=== PATIENT | female | born 1985 | race American Indian/Alaskan Native ===

== ENCOUNTER 2020-09-12 18:33 | Inpatient (IN) | payer OTHER ==
[2020-09-12 19:47] LABS: Basophils % (Auto) 0.1 % (0.0-1.8); Eosinophils # (Auto) 0.2 K/mm3 (0.0-0.4); Eosinophils % (Auto) 1.6 % (0.0-4.3); Hematocrit 32.1 % (30.3-42.9); Hemoglobin 10.7 gm/dl (10.1-14.3); Lymphocytes % (Auto) 13.7 % (13.4-35.0); Mean Corpuscular HGB Conc 33 % (30-34); Mean Corpuscular Volume 77 fl (79-97); Platelet Count 422 K/mm3 (140-440); Red Blood Count 4.15 M/mm3 (3.65-5.03); Red Cell Distribution Width 15.2 % (13.2-15.2)
[2020-09-12 20:04] LABS: Alanine Aminotransferase 11 units/L (7-56); Albumin 3.4 g/dL (3.9-5); BUN/Creatinine Ratio 9; Blood Urea Nitrogen 7 mg/dL (7-17); Calcium 9.6 mg/dL (8.4-10.2); Hemolysis Index 5
[2020-09-12 20:32] LABS: Bacteria,Urine 1+ /HPF (Negative); Bilirubin,Urine NEG (Negative); Blood,Urine LG (Negative); Color,Urine Yellow (Yellow); Mucus,Urine FEW /HPF; Urobilinogen,Urine < 2.0 mg/dL (<2.0)
[2020-09-12] MEDS ORDERED: MORPHINE 4 MG/1 ML INJ IV ONE (23:59)
[2020-09-12] MEDS ORDERED: SODIUM CHLORIDE 0.9% 1000 ML 1,000 ML IV ONE (23:59)
[2020-09-12] MEDS ORDERED: ONDANSETRON 4 MG/2 ML INJ IV ONE (23:59)
[2020-09-13] MEDS ORDERED: FAMOTIDINE 20 MG/2 ML INJ IV ONE
[2020-09-13] MEDS ORDERED: cefTRIAXone/NS 1 GM/50 ML 1 GM/50 ML BAG IV ONE
--- NOTE | 2020-09-13 02:01 | Cat Scan Report ---
CT ABDOMEN AND PELVIS WITH IV CONTRAST INDICATION: Right lower quadrant abdominal pain TECHNIQUE: Following the administration of intravenous contrast, multiple axial CT images of the abdo men and pelvis were acquired. Sagittal and coronal reformats were obtained. All CT performed at this facility utilize dose reduction techniques including automated exposure control, iterative reconstru ction and weight based dosing when appropriate to reduce patient radiation dose to as low as reasonab ly achievable. COMPARISON: None FINDINGS: Limited imaging of the bilateral lung bases demonstrates no acute abnormality. ABDOMEN: The liver, gallbladder, spleen, pancreas, bilateral adrenal glands and bilateral kidneys show no evid ence of acute abnormality. The abdominal aorta is normal in caliber. There is moderate inflammatory stranding and enhancement of multiple loops of mid and distal small vi wel an associated small amount of free fluid. There are multiple enlarged lymph nodes within the righ t lower quadrant. There are also hyperenhancing inflammatory changes of the ascending colon. No defin ite pneumatosis or extraluminal free air can be identified. Please note that the appendix cannot defi nitely be identified. PELVIS: The urinary bladder and uterus appear within normal limits. The distal colon appears grossly normal. There is a small amount of free pelvic fluid. BONES AND SOFT TISSUES: Bony structures appear grossly normal. Evaluation of soft tissue structures d emonstrates no acute soft tissue abnormality. IMPRESSION: 1. Moderate inflammatory changes within the right lower quadrant as described with multiple loops of hyperenhancing distal small bowel and ascending colon. Findings may suggest an infectious or inflamma tory process such as inflammatory bowel disease. Please correlate with patient's clinical circumstanc es. 2. Please note that a normal appendix cannot be identified. Signer Name: Samira Horne MD Signed: 09/13/2020 1:56 AM Workstation Name: [id number]
[2020-09-13] MEDS ORDERED: metroNIDAZOLE/NS 500 MG/100 ML 500 MG/100 ML BAG IV ONE (02:23)
[2020-09-13] MEDS ORDERED: levoFLOXacin 500 MG TAB PO ONE (02:23)
--- NOTE | 2020-09-13 02:36 | Emergency Department Report ---
ED Abdominal Pain HPI - General Chief Complaint: Abdominal Pain Stated Complaint: STOMACH PAIN/RT SIDE PAIN Source: patient Mode of arrival: Ambulatory Limitations: No Limitations - History of Present Illness Initial Comments: Patient is a 35-year-old -[place] female with no past medical history presents to the ED with complaint of acute onset persistent right lower quadrant abdominal pain with nausea of for the last 1 week, worse in the last 4 days. Patient states that the last 24 hours, the pain has worsened significantly in the right lower quadrant. Patient states that she initially started having mild diffuse abdominal pain over 2 weeks ago and even travel to [place] with have friends but when she got back she initially thought that she was constipated and took a lot of laxatives which did not help relieve her pain. Patient states that about 4 days ago the pain has become more worse in severity. Patient denies dysuria, urinary frequency and urgency, vaginal bleeding, vaginal discharge, chest pain, shortness of breath, diarrhea, vomiting, traumatic injury or heavy lifting, fever and chills or low back pain. MD Complaint: abdominal pain (RLQ pain) -: Sudden, days(s) (5) Location: RLQ Radiation: RLQ, suprapubic Migration to: no migration Severity: severe Severity scale (0 -10): 7 Quality: cramping, aching, sharp Consistency: constant Improves With: nothing Worsens With: movement Associated Symptoms: denies other symptoms, nausea. denies: vomiting, diarrhea, fever, chills, constipation, dysuria, hematemesis, hematochezia, melena, hematur ia, anorexia, syncope - Related Data LMP (females 10-50): this week Allergies Allergy/AdvReac Type Severity Reaction Status Date / Time No Known Allergies Allergy Unverified 09/12/20 19:25 ED Review of Systems ROS: Stated complaint: STOMACH PAIN/RT SIDE PAIN Other details as noted in HPI Constitutional: denies: chills, fever Eyes: denies: eye pain, eye discharge, vision change ENT: denies: ear pain, throat pain Respiratory: denies: cough, shortness of breath, wheezing Cardiovascular: denies: chest pain, palpitations Endocrine: no symptoms reported Gastrointestinal: abdominal pain (RLQ), nausea. denies: diarrhea Genitourinary: denies: urgency, dysuria, discharge Musculoskeletal: denies: back pain, joint swelling, arthralgia Skin: denies: rash, lesions Neurological: denies: headache, weakness, paresthesias Psychiatric: denies: anxiety, depression Hematological/Lymphatic: denies: easy bleeding, easy bruising ED Past Medical Hx - Past Medical History Previous Medical History?: No - Surgical History Past Surgical History?: No ED Physical Exam - General Limitations: No Limitations General appearance: alert, in no apparent distress - Head Head exam: Present: atraumatic, normocephalic, normal inspection - Eye Eye exam: Present: normal appearance, PERRL, EOMI Pupils: Present: normal accommodation - ENT ENT exam: Present: normal exam, normal orophraynx, mucous membranes moist, TM's normal bilaterally, normal external ear exam - Neck Neck exam: Present: normal inspection, full ROM - Respiratory Respiratory exam: Present: normal lung sounds bilaterally. Absent: respiratory distress, wheezes, rales, rhonchi, chest wall tenderness, decreased breath sounds, prolonged expiratory - Cardiovascular Cardiovascular Exam: Present: regular rate, normal rhythm, normal heart sounds. Absent: systolic murmur, diastolic murmur, rubs, gallop - GI/Abdominal GI/Abdominal exam: Present: soft, tenderness (RLQ tenderness), normal bowel sounds. Absent: distended, guarding, hyperactive bowel sounds, hypoactive bowel sounds, organomegaly, mass, bruit, hernia - Bi-manual exam: Present: other (Pelvic exam deferred) - Extremities Exam Extremities exam: Present: normal inspection, full ROM, normal capillary refill - Back Exam Back exam: Present: normal inspection, full ROM. Absent: tenderness, CVA tenderness (R), CVA tenderness (L), muscle spasm, paraspinal tenderness, vertebral tenderness - Neurological Exam Neurological exam: Present: alert, oriented X3, CN II-XII intact, normal gait, reflexes normal - Psychiatric Psychiatric exam: Present: normal affect, normal mood - Skin Skin exam: Present: warm, dry, intact, normal color. Absent: rash ED Course Vital Signs 09/12/20 19:27 Temperature 98.2 F Pulse Rate 91 H Respiratory 18 Rate Blood Pressure 131/79 O2 Sat by Pulse 99 Oximetry ED Medical Decision Making - Lab Data Result diagrams: 09/12/20 19:28 09/12/20 19:28 - Radiology Data Radiology results: report reviewed, image reviewed Findings [facility] [address] [place] [address] Cat Scan Report Signed Patient: CONNIE MARTINEZ MR#: [id number] 3 : 1985 Acct:[id number] Age/Sex: 35 / F ADM Date: 09/12/20 Loc: ED Attending Dr: Ordering Physician: ELVA DUGAN Date of Service: 09/12/20 Procedure(s): CT abdomen pelvis w con Accession Number(s): [id number] cc: ELVA DUGAN CT ABDOMEN AND PELVIS WITH IV CONTRAST INDICATION: Right lower quadrant abdominal pain TECHNIQUE: Following the administration of intravenous contrast, multiple axial CT images of the abdomen and pelvis were acquired. Sagittal and coronal reformats were obtained. All CT performed at this facility utilize dose reduction techniques including automated exposure control, iterative reconstruction and weight based dosing when appropriate to reduce patient r adiation dose to as low as reasonably achievable. COMPARISON: None FINDINGS: Limited imaging of the bilateral lung bases demonstrates no acute abnormality. ABDOMEN: The liver, gallbladder, spleen, pancreas, bilateral adrenal glands and bilateral kidneys show no evidence of acute abnormality. The abdominal aorta is normal in caliber. There is moderate inflammatory stranding and enhancement of multiple loops of mid and distal small bowel an associated small amount of free fluid. There are multiple enlarged lymph nodes within the right lower quadrant. There are also hyperenhancing inflammatory changes of the ascending colon. No definite pneumatosis or extraluminal free air can be identified. Please note that the appendix cannot definitely be identified. PELVIS: The urinary bladder and uterus appear within normal limits. The distal colon appears grossly normal. There is a small amount of free pelvic fluid. BONES AND SOFT TISSUES: Bony structures appear grossly normal. Evaluation of soft tissue structures demonstrates no acute soft tissue abnormality. IMPRESSION: 1. Moderate inflammatory changes within the right lower quadrant as described with multiple loops of hyperenhancing distal small bowel and ascending colon. Findings may suggest an infectious or inflammatory process such as inflammatory bowel disease. Please correlate with patient's clinical circumstances. 2. Please note that a normal appendix cannot be identified. Signer Name: Samira Horne MD Signed: 09/13/2020 1:56 AM Workstation Name: [id number] Transcribed By: EB Dictated By: Samira Horne MD Electronically Authenticated By: Samira Horne MD Signed Date/Time: 09/13/20 0156 DD/ 0147 TD/TT: - Medical Decision Making This is a 35-year-old -[place] female with no past medical history presents to the ED with complaint of acute onset persistent right lower quadrant abdominal pain with nausea of for the last 1 week, worse in the last 4 days. Patient states that the last 24 hours, the pain has worsened significantly in the right lower quadrant. Patient states that she initially started having mild diffuse abdominal pain over 2 weeks ago and even travel to [place] with have friends but when she got back she initially thought that she was constipated and took a lot of laxatives which did not help relieve her pain. Patient states that about 4 days ago the pain has become more worse in severity. In the ED, patient is alert and oriented x3 and is not in distress. Patient was treated for pain in the ED and also received normal saline 1 L IV bolus x1, also treated with antiemetics. Lab test results were reviewed and showed acute leukocytosis of 14,300, mild hyponatremia of 134 mmol/L and significant urinary tract infection in urinalysis. Abdomen pelvis CT scan with contrast showed moderate inflammatory changes within the right lower quadrant as described with multiple loops of hyperenhancing distal small bowel and ascending colon. Findings may suggest an infectious or inflammatory process such as inflammatory bowel disease. Please correlate with patient's clinical circumstances. Please note that a normal appendix cannot be identified. These findings were discussed with the ED attending physician Dr. Phan who advised that the general surgeon on-call be consulted for further advice the patient's disposition. I therefore discussed the patient's case with the general surgeon on-call Dr. Solares who advised that the patient be admitted by hospitalist for observation and that the patient be kept n.p.o. and that the patient be treated with IV antibiotics, specifically Zosyn. Dr. Solares stated that she would consult on the patient upon the patient's admission. This plan was discussed with the patient who agreed to stay in the hospital further for evaluation. I therefore paged and discussed the patient's case with the hospitalist physician on-call Dr. Sánchez who admitted the patient to the hospital. - Differential Diagnosis Appendicitis; UTI; Ovarian cyst; Crohns disease; Colitis Critical care attestation.: If time is entered above; I have spent that time in minutes in the direct care of this critically ill patient, excluding procedure time. ED Disposition Clinical Impression: Acute abdominal pain in right lower quadrant, Acute urinary tract infection, Acute colitis Acute appendicitis Qualifiers: Acute appendicitis type: unspecified acute appendicitis type Qualified Code(s): K35.80 - Unspecified acute appendicitis Disposition: OP ADMIT IP TO THIS HOSP Is pt being admited?: No Does the pt Need Aspirin: No Condition: Stable Instructions: Abdominal Pain (ED), Abdominal Pain, Adult, [id number], Urinary Tract Infection, Adult, [id number], Appendicitis, Adult, [id number] Time of Disposition: 04:09 Print Language: LITHUANIAN
[2020-09-13] MEDS ORDERED: PIPERACIL/TAZOBACTA 4.5/NS 100 4.5 GM/100 ML VIAL IV ONE (02:38)
[2020-09-13] MEDS ORDERED: ACETAMINOPHEN 325 MG TAB PO PRN (04:09)
[2020-09-13] MEDS ORDERED: ONDANSETRON 4 MG/2 ML INJ IV PRN ×3 (04:09→14:23)
--- NOTE | 2020-09-13 04:15 | History and Physical Report ---
History of Present Illness Date of examination: 09/13/20 Date of admission: 09/13/2020 Chief complaint: Abdominal pain History of present illness: 35-year-old -[place] female with no significant past medical history presenting to the emergency room today complaining of abdominal pain. Abdominal pain has been ongoing for about 1 week and has gotten worse over the past 3 to 4 days. Abdominal pain was initially generalized thereafter became more severe towards the right lower abdomen. She has had associated nausea but no vomiting, she has had some episodes of diarrhea over the past few days. Patient indicates that she was in [place] few weeks ago and was initially constipated and thereafter started taking some laxative which helped with the constipation. She denies any hematuria or dysuria, she denies any bright red blood per rectum. Patient is currently having her menstruation but indicates it is lasting longer than usual. She has had some blood clots occasionally. Work-up in the emergency room today reveals a leukocytosis of about 14.8. Urinalysis reveals UTI. CT of the abdomen and pelvis reveals: -Moderate inflammatory changes within the right lower quadrant with multiple loops of hyperenhancing distal small bowel and ascending colon. Findings may suggest an infectious or inflammatory process such as inflammatory bowel disease. -A normal appendix cannot be identified General surgeon Dr. Solares has been consulted by the ER physician of the above findings. Recommendation is to place patient n.p.o., commence patient on empiric IV antibiotics and patient will be promptly evaluated. Past History Past Medical History: No medical history Past Surgical History: No surgical history Social history: alcohol abuse (Occasional alcohol intake) Family history: other (Heart disease in family) Medications and Allergies Allergies Allergy/AdvReac Type Severity Reaction Status Date / Time No Known Allergies Allergy Unverified 09/12/20 19:25 Review of Systems Constitutional: no fever, no chills Ears, nose, mouth and throat: no nasal congestion, no sore throat Cardiovascular: no chest pain, no palpitations Respiratory: no cough, no shortness of breath Gastrointestinal: abdominal pain, nausea, diarrhea, no vomiting, no hematemesis, no coffee ground emesis, no BRBPR, no melena Genitourinary Female: no flank pain, no dysuria, no hematuria Musculoskeletal: no neck pain, no low back pain Integumentary: no rash, no pruritis Neurological: no headaches, no confusion Psychiatric: no anxiety, no depression Exam - Constitutional Vitals: Temp Pulse Resp BP Pulse Ox 98.1 F 84 16 126/81 98 09/13/20 04:08 09/13/20 04:08 09/13/20 04:08 09/13/20 04:08 09/13/20 04:08 General appearance: Present: no acute distress, well-nourished, obese - EENT Eyes: Present: PERRL, EOM intact. Absent: scleral icterus ENT: hearing intact, clear oral mucosa, dentition normal - Neck Neck: Present: supple, normal ROM - Respiratory Respiratory effort: normal Respiratory: bilateral: CTA - Cardiovascular Rhythm: regular Heart Sounds: Present: S1 & S2. Absent: gallop, systolic murmur, diastolic murmur, rub - Extremities Extremities: no ischemia, pulses intact, pulses symmetrical, No edema, Full ROM Peripheral Pulses: within normal limits - Abdominal General gastrointestinal: Present: soft, tender (right lower quadrant, no rebound tenderness.), non-distended, normal bowel sounds. Absent: mass - Integumentary Integumentary: Present: clear, warm, dry. Absent: rash - Musculoskeletal Musculoskeletal: strength equal bilaterally - Psychiatric Psychiatric: appropriate mood/affect, intact judgment & insight, memory intact, cooperative - Neurologic Neurologic: CNII-XII intact, no focal deficits, moves all extremities Results - Labs CBC & Chem 7: 09/12/20 19:28 09/12/20 19:28 Labs: Abnormal lab results 09/12/20 09/12/20 09/12/20 Range/Units 19:28 19:28 Unknown WBC 14.3 H (4.5-11.0) K/mm3 MCV 77 L (79-97) fl MCH 26 L (28-32) pg [place] # (Auto) 1.0 H (0.0-0.8) K/mm3 Seg Neutrophils % 77.6 H (40.0-70.0) % Seg Neutrophils # 11.1 H (1.8-7.7) K/mm3 Sodium 134 L (137-145) mmol/L Chloride 97.9 L (98-107) mmol/L Total Protein 8.6 H (6.3-8.2) g/dL Albumin 3.4 L (3.9-5) g/dL Urine WBC (Auto) 78.0 H (0.0-6.0) /HPF Assessment and Plan - Patient Problems (1) Acute abdominal pain in right lower quadrant Current Visit: Yes Status: Acute Plan to address problem: Possibly secondary to colitis and or appendicitis. Patient made n.p.o. and started on empiric IV antibiotics and IV fluid. General surgeon Dr. Solares has been consulted patient be promptly evaluated. (2) Acute urinary tract infection Current Visit: Yes Status: Acute Plan to address problem: Patient placed on empiric IV antibiotics. We await urine culture results. (3) DVT prophylaxis Current Visit: Yes Status: Acute Plan to address problem: Patient placed on sequential compression device. (4) Full code status Current Visit: Yes Status: Acute
[2020-09-13] MEDS ORDERED: MORPHINE 2 MG/1 ML INJ IV PRN (04:20)
[2020-09-13] MEDS ORDERED: HYDROmorphone 1 MG/1 ML INJ IV ONE (04:24)
[2020-09-13] MEDS ORDERED: ONDANSETRON 4 MG/2 ML INJ IV ONE (04:25)
--- NOTE | 2020-09-13 09:24 | Consultation ---
History of Present Illness Consult date: 09/13/20 Reason for consult: abdominal pain - History of present illness History of present illness: 35 year old female who presented to the ED with a 5 day hx of abdominal pain that started generalized and localized to the RLQ over the past 2-3 days. She says at its worse the pain is 10/10, currently a 6/10 after pain medication given. She says she has felt nauseous off and on but denies vomiting. She had a CT scan that showed inflamed small bowel loops and ascending colon, however the appendix could not be visualized. There were no signs of free air, fluid, or abscess. She denies ever having this pain before. Past History Past Medical History: No medical history Past Surgical History: No surgical history Social history: alcohol abuse (Occasional alcohol intake) Family history: other (Heart disease in family) Medications and Allergies Allergies Allergy/AdvReac Type Severity Reaction Status Date / Time No Known Allergies Allergy Unverified 09/12/20 19:25 Active Meds: Active Medications Acetaminophen (Acetaminophen 325 Mg Tab) 650 mg PO Q4H PRN PRN Reason: Pain MILD(1-3)/Fever >100.5/CHASE Piperacillin Sod/Tazobactam Sod (Zosyn/Ns 4.5gm/100ml) 4.5 gm in 100 mls @ 200 mls/hr IV Q8HR ONIEL; Protocol Morphine Sulfate (Morphine 2 Mg/1 Ml Inj) 2 mg IV Q4H PRN PRN Reason: Pain, Moderate (4-6) Last Admin: 09/13/20 09:08 Dose: 2 mg Documented by: Ondansetron HCl (Ondansetron 4 Mg/2 Ml Inj) 4 mg IV Q8H PRN PRN Reason: Nausea And Vomiting Sodium Chloride (Sodium Chloride 0.9% 10 Ml Flush Syringe) 10 ml IV BID ONIEL Last Admin: 09/13/20 09:13 Dose: 10 ml Documented by: Sodium Chloride (Sodium Chloride 0.9% 10 Ml Flush Syringe) 10 ml IV PRN PRN PRN Reason: LINE FLUSH Review of Systems - Constitutional fever, chills, poor appetite - Cardiovascular no chest pain - Respiratory no cough, no shortness of breath - Gastrointestinal abdominal pain, nausea - Genitourinary Genitourinary: no dysuria Exam Vital Signs Temp Pulse Resp BP Pulse Ox 98.2 F 91 H 18 131/79 99 09/12/20 19:27 09/12/20 19:27 09/12/20 19:27 09/12/20 19:27 09/12/20 19:27 - General physical appearance Positive: well developed, no distress, moderate pain - Respiratory Positive: normal expansion, normal respiratory effort - Extremities Extremities: no ischemia - Abdomen Abdomen: Present: soft, other (tender to palpation RLQ). Absent: distended, guarding, rigid Hernia: none Results - Labs 09/12/20 19:28 09/12/20 19:28 Abnormal lab results 09/12/20 09/12/20 09/12/20 Range/Units 19:28 19:28 Unknown WBC 14.3 H (4.5-11.0) K/mm3 MCV 77 L (79-97) fl MCH 26 L (28-32) pg [place] # (Auto) 1.0 H (0.0-0.8) K/mm3 Seg Neutrophils % 77.6 H (40.0-70.0) % Seg Neutrophils # 11.1 H (1.8-7.7) K/mm3 Sodium 134 L (137-145) mmol/L Chloride 97.9 L (98-107) mmol/L Lactic Acid (0.7-2.0) mmol/L Total Protein 8.6 H (6.3-8.2) g/dL Albumin 3.4 L (3.9-5) g/dL Urine WBC (Auto) 78.0 H (0.0-6.0) /HPF 09/13/20 Range/Units 03:57 WBC (4.5-11.0) K/mm3 MCV (79-97) fl MCH (28-32) pg [place] # (Auto) (0.0-0.8) K/mm3 Seg Neutrophils % (40.0-70.0) % Seg Neutrophils # (1.8-7.7) K/mm3 Sodium (137-145) mmol/L Chloride (98-107) mmol/L Lactic Acid 0.60 L (0.7-2.0) mmol/L Total Protein (6.3-8.2) g/dL Albumin (3.9-5) g/dL Urine WBC (Auto) (0.0-6.0) /HPF Diabetes panel 09/12/20 Range/Units 19:28 Sodium 134 L (137-145) mmol/L Potassium 4.0 (3.6-5.0) mmol/L Chloride 97.9 L (98-107) mmol/L Carbon Dioxide 25 (22-30) mmol/L BUN 7 (7-17) mg/dL Creatinine 0.8 (0.6-1.2) mg/dL Glucose 93 (65-100) mg/dL Calcium 9.6 (8.4-10.2) mg/dL AST 13 (5-40) units/L ALT 11 (7-56) units/L Alkaline Phosphatase 64 (35-129) units/L Total Protein 8.6 H (6.3-8.2) g/dL Albumin 3.4 L (3.9-5) g/dL Calcium panel 09/12/20 Range/Units 19:28 Calcium 9.6 (8.4-10.2) mg/dL Albumin 3.4 L (3.9-5) g/dL Pituitary panel 09/12/20 Range/Units 19:28 Sodium 134 L (137-145) mmol/L Potassium 4.0 (3.6-5.0) mmol/L Chloride 97.9 L (98-107) mmol/L Carbon Dioxide 25 (22-30) mmol/L BUN 7 (7-17) mg/dL Creatinine 0.8 (0.6-1.2) mg/dL Glucose 93 (65-100) mg/dL Calcium 9.6 (8.4-10.2) mg/dL Adrenal panel 09/12/20 Range/Units 19:28 Sodium 134 L (137-145) mmol/L Potassium 4.0 (3.6-5.0) mmol/L Chloride 97.9 L (98-107) mmol/L Carbon Dioxide 25 (22-30) mmol/L BUN 7 (7-17) mg/dL Creatinine 0.8 (0.6-1.2) mg/dL Glucose 93 (65-100) mg/dL Calcium 9.6 (8.4-10.2) mg/dL Total Bilirubin 0.40 (0.1-1.2) mg/dL AST 13 (5-40) units/L ALT 11 (7-56) units/L Alkaline Phosphatase 64 (35-129) units/L Total Protein 8.6 H (6.3-8.2) g/dL Albumin 3.4 L (3.9-5) g/dL - Imaging CT scan - abdomen: report reviewed, image reviewed CT scan - pelvis: report reviewed, image reviewed Assessment and Plan 35 year old female with acute RLQ pain with leukocytosis and CT scan findings consistent with possible appendicitis although appendix could not be visualized. Talked to patient at length about the possibility of this being an inflammatory process like enteritis, although appendicitis could not be ruled out. She agreed to dx laparoscopy with appendectomy. Will take for surgery later today. Continue NPO, and zosyn consent signed
[2020-09-13] MEDS: PIPERACIL/TAZOBACTA 4.5/NS 100 4.5 GM/100 ML VIAL IV SCH ×3 (09:27→23:11)
--- NOTE | 2020-09-13 09:56 | Event Note ---
Date: 09/13/20 Patient seen and examined, clinically stable at this time. Discussed findings with the patient possible surgery today as detailed by the surgeon. Patient verbalized understanding
[2020-09-13] MEDS ORDERED: propofoL 200 MG/20 ML VIAL IV ONE (14:20)
[2020-09-13] MEDS ORDERED: LIDOCAINE MPF (2%) 20 MG/1 ML VIAL 5 ML ONE (14:20)
[2020-09-13] MEDS ORDERED: SUCCINYLCHOLINE CHLORIDE 200 MG/10 ML INJ MDV ONE (14:20)
[2020-09-13] MEDS ORDERED: HYDROmorphone 1 MG/1 ML INJ ONE (14:20)
[2020-09-13] MEDS ORDERED: ROCURONIUM 50 MG/5 ML INJ IV ONE (14:20)
--- NOTE | 2020-09-13 14:22 | Anesthesia Day of Surgery ---
Anesthesia Day of Surgery - Day of Surgery Patient Examined: Yes Patient H&P Reviewed: Yes Patient is NPO: Yes
[2020-09-13] MEDS ORDERED: HYDROmorphone 1 MG/1 ML INJ IV PRN (14:23)
--- NOTE | 2020-09-13 14:23 | Anesthesia Consultation ---
Anesthesia Consult and Med Hx Date of service: 09/13/20 - Airway Anesthetic Teeth Evaluation: Good ROM Head & Neck: Adequate Mental/Hyoid Distance: Adequate Mallampati Class: Class I Intubation Access Assessment: Good - Pre-Operative Health Status ASA Pre-Surgery Classification: ASA2 Proposed Anesthetic Plan: General - Pulmonary Hx Asthma: No COPD: No Hx Pneumonia: No - Central Nervous System Hx Psychiatric Problems: No - Endocrine Hx End Stage Renal Disease: No - Other Systems Hx Obesity: Yes
[2020-09-13] MEDS ORDERED: LACTATED RINGERS 1,000 ML IV SCH (14:30)
[2020-09-13] MEDS ORDERED: LIDOCAINE (1%) 10 MG/1 ML VIAL 20 ML MDV ONE (14:35)
[2020-09-13] MEDS ORDERED: BUPIVACAINE/PF (0.5%) 5 MG/1 ML 30 ML VIAL INFILTRATI ONE ×2 (14:35→16:07)
[2020-09-13] MEDS ORDERED: LACTATED RINGERS 1,000 ML ONE (14:38)
[2020-09-13] MEDS ORDERED: MIDAZOLAM 2 MG/2 ML INJ IV NR (15:00)
[2020-09-13] MEDS ORDERED: dexAMETHasone 20 MG/5 ML VIAL ONE (15:30)
[2020-09-13] MEDS ORDERED: ONDANSETRON 4 MG/2 ML INJ ONE (15:30)
[2020-09-13] MEDS ORDERED: ceFAZolin 1 GM VIAL ONE ×2 (15:31)
[2020-09-13] MEDS ORDERED: LIDOCAINE (1%) 10 MG/1 ML VIAL 20 ML MDV INFILTRATI ONE (16:07)
[2020-09-13] MEDS ORDERED: SODIUM CHLORIDE 0.9% IRRIG SOLN 2000 ML IR ONE (16:08)
[2020-09-13] MEDS ORDERED: SODIUM CHLORIDE 0.9% IRR 1,000 ML BOTTLE IR ONE (16:08)
[2020-09-13] MEDS ORDERED: GLYCOPYRROLATE 0.4 MG/2 ML INJ ONE (16:17)
[2020-09-13] MEDS ORDERED: NEOSTIGMINE 10MG/10 ML INJ MDV ONE (16:17)
--- NOTE | 2020-09-13 16:37 | Event Note ---
Date: 09/13/20 pt had uneventful laparoscopic appendectomy. If does well overnight may possibly be discharged tomorrow.
--- NOTE | 2020-09-13 16:50 | Operative Report ---
Operative Report Operative Report: Dates of Service: 09/13/2020 Primary Surgeon: Arlyn Solares MD Assisted by: Salma Delatorre DO Procedure: Laparoscopic Appendectomy Anesthesia: GETA Pre-Operative Diagnosis: acute appendicitis Post-Operative Diagnosis: Same Indications for Procedure: 35 year old female presented to ED with 5 day hx of worsening abdominal RLQ pain. CT scan showed inflamed small bowel and ascending colon loops although appendix could not be visualized. Clinical picture was c/w likely appendicitis. She signed informed consent for laparoscopic appendectomy. Description of Procedure(s): The patient was brought to the operating room and underwent general anesthesia after lower extremity SCD were placed. The abdomen was prepped and draped in the standard fashion. IV antibiotics were given and a time out was performed. Using a veress needle via a stab incision in the umbilicus, the abdomen was insuflated to a pressure of 15mmHg. Using optivew technique, a 5mm trocar was placed just superior and to the left of the umbilicus. There was no gross injury noted to any intra-abdominal structures. A fter which working trocars were placed under direct visualization. A 12 mm trocar was placed in left mid abdomen, and a 5 mm trocar was inserted in the suprapubic area. The patient was placed in slight Trendelenburg position and tilted towards her left side. There was noted to be significant small bowel adhesions to the anterior abdominal wall. These were soft and flimsy consistent with acute inflammation. These were easily taken down with gentle traction. The cecum was identified and mobilized, as well as the terminal ileum. There was noted to be some fibrinous exudate and serosanguineous fluid. There was no gross purulent fluid. The appendix was noted to be retrocecal. It was skeletonized off of the side of the terminal ileum with the LigaSure device. The mesoappendix was transected with the LigaSure. The appendix was then taken at its base with a white load on a laparoscopic stapler. The staple line was inspected and found to be hemostatically sound and secure. There was minimal irrigation of the right lower quadrant. The appendix was placed in Endo Catch bag. It was then retrieved via the 12 mm trocar. The fascia was then closed using a #1 PDS and a suture passer device. Trocars were removed under direct visualization. The insufflation was then terminated. The skin incisions were closed using 4-0 Monocryl sutures. All the wounds dressed with dermabond. The patient tolerated the procedure well, was extubated and taken to the recovery room in satisfactory condition. Specimen: appendix Complications: none immediate EBl: minimal Findings: significant inflammation of the distal ileum and cecum with an enlarged firm appendix. There was no gross perforation seen, but suspect micro perf as inflammatory reaction in RLQ was intense.
[2020-09-13] MEDS: HYDROmorphone 1 MG/1 ML INJ IV PRN ×2 (17:09→17:20)
--- NOTE | 2020-09-13 18:29 | Post Anesthesia Evaluation ---
- Post Anesthesia Evaluation Patient Participated: Yes Airway Patent: Yes Stable Respiratory Function: Yes Nausea/Vomiting: No Temp > 96.8F: Yes Pain Manageable: Yes Adequeate Hydration: Yes Anesthesia Complications: No Block Receding Appropriately: Not Applicable Patient on Ventilator: No
[2020-09-13] MEDS ORDERED: oxyCODONE /ACETAMINOPHEN 5-325MG TAB PO PRN (19:54)
[2020-09-13] MEDS: KETOROLAC 30 MG/1 ML INJ IV SCH (21:54)
[2020-09-14] MEDS: KETOROLAC 30 MG/1 ML INJ IV SCH ×4 (01:19→17:55)
[2020-09-14] MEDS: PIPERACIL/TAZOBACTA 4.5/NS 100 4.5 GM/100 ML VIAL IV SCH ×3 (05:03→21:10)
[2020-09-14] MEDS: LACTATED RINGERS 1,000 ML IV SCH ×2 (05:04→17:57)
[2020-09-14 05:52] LABS: Basophils % (Auto) 0.1 % (0.0-1.8); Hematocrit 30.2 % (30.3-42.9); Hemoglobin 9.6 gm/dl (10.1-14.3); Lymphocytes # (Auto) 1.2 K/mm3 (1.2-5.4); Lymphocytes % (Auto) 7.5 % (13.4-35.0); Mean Corpuscular HGB Conc 32 % (30-34); Mean Corpuscular Volume 79 fl (79-97); Monocytes % (Auto) 6.2 % (0.0-7.3); Platelet Count 441 K/mm3 (140-440); Red Blood Count 3.85 M/mm3 (3.65-5.03); Red Cell Distribution Width 15.2 % (13.2-15.2)
--- NOTE | 2020-09-14 09:41 | Progress Note ---
Assessment and Plan POD#1 s/p lap appy for acute appendicitis. Suspect appendix had a microperforation since there was an intense inflammatory reaction in the RLQ encompassing small bowel and right colon. Afebrile and stable with increasing leukocytosis (likely due to reaction from taking down inflammatory adhesions that were walling off perforated appendix) Continue IV abx for one more day and plan for discharge tomorrow assuming she continues to clinically do well. Subjective Date of service: 09/14/20 Patient Reports: Positive: still having pain, pain is less, tolerating liquids well (no acute events overnight. Pt says she has some pain in her RLQ when she eats. ) Objective Vital Signs - 12hr 09/14/20 09/14/20 09/14/20 03:11 04:00 07:50 Temperature 98.5 F 97.9 F Pulse Rate 67 103 H 56 L Respiratory 18 18 Rate Blood Pressure 109/71 102/66 O2 Sat by Pulse 100 98 Oximetry 09/14/20 08:24 Temperature 97.4 F L Pulse Rate 70 Respiratory 18 Rate Blood Pressure 103/64 O2 Sat by Pulse 97 Oximetry - General physical appearance well developed, well nourished, no distress, moderate pain - Respiratory normal expansion, normal respiratory effort - Abdomen soft, not rebound, not guarding, not rigid, other (incisions c/d/i, apporpriately tender to palpation) - Labs 09/14/20 05:13 09/12/20 19:28
--- NOTE | 2020-09-14 16:09 | Progress Note ---
Subjective Date of service: 09/14/20 Interval history: 35-year-old -British female with no significant past medical history presenting to the emergency room today complaining of abdominal pain. Abdominal pain has been ongoing for about 1 week and has gotten worse over the past 3 to 4 days. Abdominal pain was initially generalized thereafter became more severe towards the right lower abdomen. She has had associated nausea but no vomiting, she has had some episodes of diarrhea over the past few days. Patient indicates that she was in [place] few weeks ago and was initially constipated and thereafter started taking some laxative which helped with the constipation. She denies any hematuria or dysuria, she denies any bright red blood per rectum. Patient is currently having her menstruation but indicates it is lasting longer than usual. She has had some blood clots occasionally. Work-up in the emergency room today reveals a leukocytosis of about 14.8. Urinalysis reveals UTI. CT of the abdomen and pelvis reveals: -Moderate inflammatory changes within the right lower quadrant with multiple loops of hyperenhancing distal small bowel and ascending colon. Findings may suggest an infectious or inflammatory process such as inflammatory bowel disease. -A normal appendix cannot be identified General surgeon Dr. Solares has been consulted by the ER physician of the above findings. Recommendation is to place patient n.p.o., commence patient on empiric IV antibiotics and patient will be promptly evaluated. 09/14 patient is alert and oriented and offers no specific complaints except intermittent abdominal pain. She denies any nausea or vomiting. Denies fever or chills. General surgery note reviewed. Lab results reviewed Assessment and plan Acute appendicitis with suspected microperforation Status post lap appendectomy General surgery note reviewed Patient states that she has not yet passed flatus Neutrophilic leukocytosis Rule out reactive versus secondary to UTI versus intra-abdominal infection Continue Zosyn Normocytic anemia No overt bleed Monitor H&H Urinary tract infection UA reviewed Urine cultures were not obtained Continue IV antibiotic Objective - Constitutional Vitals: Vital Signs - 12hr 09/14/20 09/14/20 09/14/20 07:50 08:24 11:43 Temperature 97.9 F 97.4 F L 97.9 F Pulse Rate 56 L 70 73 Respiratory 18 18 18 Rate Blood Pressure 102/66 103/64 109/70 O2 Sat by Pulse 98 97 97 Oximetry General appearance: Present: no acute distress, well-nourished - EENT Eyes: PERRL, EOM intact ENT: hearing intact, clear oral mucosa - Neck Neck: supple, normal ROM - Respiratory Respiratory effort: normal Respiratory: bilateral: CTA - Cardiovascular Rhythm: regular Heart Sounds: Present: S1 & S2 Extremities: No edema - Gastrointestinal General gastrointestinal: Present: soft, tender (Appropriately tender) Rectal Exam: deferred - Genitourinary Female genitourinary: deferred - Integumentary Integumentary: clear - Musculoskeletal Musculoskeletal: strength equal bilaterally - Neurologic Neurologic: no focal deficits - Psychiatric Psychiatric: appropriate mood/affect - Labs CBC & Chem 7: 09/14/20 05:13 09/12/20 19:28 Labs: Abnormal lab results 09/14/20 Range/Units 05:13 WBC 15.6 H (4.5-11.0) K/mm3 Hgb 9.6 L (10.1-14.3) gm/dl Hct 30.2 L (30.3-42.9) % MCH 25 L (28-32) pg Plt Count 441 H (140-440) K/mm3 Lymph % (Auto) 7.5 L (13.4-35.0) % [place] # (Auto) 1.0 H (0.0-0.8) K/mm3 Seg Neutrophils % 86.2 H (40.0-70.0) % Seg Neutrophils # 13.5 H (1.8-7.7) K/mm3
[2020-09-15] MEDS: KETOROLAC 30 MG/1 ML INJ IV SCH ×3 (00:48→11:30)
[2020-09-15] MEDS: PIPERACIL/TAZOBACTA 4.5/NS 100 4.5 GM/100 ML VIAL IV SCH (06:17)
[2020-09-15 06:46] LABS: Basophils % (Auto) 0.4 % (0.0-1.8); Eosinophils # (Auto) 0.2 K/mm3 (0.0-0.4); Eosinophils % (Auto) 1.5 % (0.0-4.3); Hematocrit 28.7 % (30.3-42.9); Hemoglobin 9.3 gm/dl (10.1-14.3); Lymphocytes # (Auto) 2.5 K/mm3 (1.2-5.4); Lymphocytes % (Auto) 23.9 % (13.4-35.0); Mean Corpuscular HGB Conc 33 % (30-34); Mean Corpuscular Volume 78 fl (79-97); Monocytes # (Auto) 0.9 K/mm3 (0.0-0.8); Platelet Count 410 K/mm3 (140-440); Red Blood Count 3.69 M/mm3 (3.65-5.03); Red Cell Distribution Width 14.9 % (13.2-15.2)
--- NOTE | 2020-09-15 10:46 | Discharge Summary ---
Providers - Providers Date of Admission: 09/13/20 04:10 Date of discharge: 09/15/20 Attending physician: HOLLY LYN 09/13/20 02:49 Consult to Physician [CONS] Stat Comment: To consult upon admission Consulting Provider: MARILEE SOLARES Physician Instructions: Keep NPO; Admit to Hospitalist; Start Abx IV Reason For Exam: Colitis; Appendicitis [facility] Condition: Stable Hospital course: 35-year-old -Greek female with no significant past medical history presenting to the emergency room today complaining of abdominal pain. Abdominal pain has been ongoing for about 1 week and has gotten worse over the past 3 to 4 days. Abdominal pain was initially generalized thereafter became more severe towards the right lower abdomen. She has had associated nausea but no vomiting, she has had some episodes of diarrhea over the past few days. Patient indicates that she was in [place] few weeks ago and was initially constipated and thereafter started taking some laxative which helped with the constipation. She denies any hematuria or dysuria, she denies any bright red blood per rectum. Patient is currently having her menstruation but indicates it is lasting longer than usual. She has had some blood clots occasionally. Work-up in the emergency room today reveals a leukocytosis of about 14.8. Urinalysis reveals UTI. CT of the abdomen and pelvis reveals: -Moderate inflammatory changes within the right lower quadrant with multiple loops of hyperenhancing distal small bowel and ascending colon. Findings may suggest an infectious or inflammatory process such as inflammatory bowel disease. -A normal appendix cannot be identified General surgeon Dr. Solares has been consulted by the ER physician of the above findings. Recommendation is to place patient n.p.o., commence patient on empiric IV antibiotics and patient will be promptly evaluated. 09/14 patient is alert and oriented and offers no specific complaints except intermittent abdominal pain. She denies any nausea or vomiting. Denies fever or chills. General surgery note reviewed. Lab results reviewed 09/15 patient offers no complaints, tolerating diet well, denies any pain, past flatus and had a small bowel movement, abdomen is benign, medically stable for discharge. Instructed the RN to keep the patient until surgery clears the patient Assessment and plan Acute appendicitis with suspected microperforation Status post lap appendectomy General surgery note reviewed Augmentin x7 days Neutrophilic leukocytosis Resolved Rule out reactive versus secondary to UTI versus intra-abdominal infection Normocytic anemia No overt bleed H&H stable Urinary tract infection UA reviewed Urine cultures were not obtained Disposition: DC-30 STILL A PATIENT Time spent for discharge: 36 min Core Measure Documentation - Palliative Care Palliative Care/ Comfort Measures: Not Applicable - Core Measures Any of the following diagnoses?: none Exam - Constitutional Vitals: Temp Pulse Resp BP Pulse Ox 97.9 F 76 18 124/78 95 09/15/20 07:41 09/15/20 07:41 09/15/20 07:41 09/15/20 07:41 09/15/20 07:41 General appearance: Present: no acute distress, well-nourished - EENT Eyes: Present: PERRL, EOM intact ENT: hearing intact, clear oral mucosa - Neck Neck: Present: supple, normal ROM - Respiratory Respiratory effort: normal Respiratory: bilateral: CTA - Cardiovascular Rhythm: regular Heart Sounds: Present: S1 & S2 - Extremities Extremities: No edema - Abdominal General gastrointestinal: Present: soft, non-tender - Rectal Rectal Exam: deferred - Integumentary Integumentary: Present: clear - Musculoskeletal Musculoskeletal: strength equal bilaterally - Psychiatric Psychiatric: appropriate mood/affect - Neurologic Neurologic: no focal deficits Plan Activity: advance as tolerated Weight Bearing Status: Full Weight Bearing Diet: regular, low fat Follow up with: KARLA ANDREA MD [Primary Care Provider] - 7 Days MARILEE SOLARES MD [Staff Physician] - 7 Days Prescriptions: Amoxicillin/Potassium Clav [Augmentin 875-125 Tablet] 1 each PO BID #10 tablet oxyCODONE /ACETAMINOPHEN [Percocet 5/325 mg] 1 tab PO Q6HR PRN #10 tablet PRN Reason: Pain, Moderate (4-6)
[2020-09-15 12:03] VITALS: BP 125/75
--- NOTE | 2020-09-15 14:01 | Progress Note ---
Assessment and Plan POD#2 s/p lap appy for acute appendicitis. Suspect appendix had a microperforation since there was an intense inflammatory reaction in the RLQ encompassing small bowel and right colon. Afebrile and stable with resolution of leukocytosis. Pt can be discharged to home today and is to call my office in the next few days to make a follow up appointment to see me in two weeks. [phone] She can advance diet and activity as tolerated. She can shower. Subjective Date of service: 09/15/20 Patient Reports: Positive: feels better, pain is less, tolerating a regular diet, flatus (no acute events overnight. pt says she feels much better and is ready to go home), bowel movement Objective Vital Signs - 12hr 09/15/20 09/15/20 09/15/20 06:15 07:41 11:45 Temperature 97.9 F 97.9 F 98.5 F Pulse Rate 76 76 75 Respiratory 18 18 18 Rate Blood Pressure 112/71 124/78 125/75 O2 Sat by Pulse 95 95 95 Oximetry - General physical appearance well developed, well nourished, no distress, no pain - Respiratory normal expansion, normal respiratory effort - Abdomen soft, not rebound, not guarding, other (incisions c/d/i, appropriatley tender to palpation) - Labs 09/15/20 06:24 09/12/20 19:28
== END 2020-09-15 17:00 | disposition home or self-care (01) | DRG 339 ==
LOC: ED 18:33 → 3A 09-13 04:10 → 4A 09-13 06:57 → 3B-SURG 09-14 08:11
PROVIDERS: ADMIT Internal Medicine Geriatric Medicine; ATTEND Internal Medicine
PROC: 0DTJ4ZZ Resection of Appendix, Percutaneous Endoscopic Approach (ICD-10-PCS; principal; 2020-09-13)
DX: K35.32 Acute appendicitis with perforation, localized peritonitis, and gangrene, without abscess (principal); N39.0 Urinary tract infection, site not specified; K52.9 Noninfective gastroenteritis and colitis, unspecified; D72.828 Other elevated white blood cell count; D64.9 Anemia, unspecified; E66.9 Obesity, unspecified; Z68.34 Body mass index [BMI] 34.0-34.9, adult; D72.829 Elevated white blood cell count, unspecified
CPT/HCPCS: 36415; 74177; 80053; 81001; 81025; 82140; 83690; 85025; 87040; 87086; 88304; 96361; 96365; 96367; 96375; 96376; G0378; A4217; J0330; J0690; J0696; J1100; J1170; J1885; J2270; J2405; J2543; J2704; J2710; J7030; J7120; Q9967